=== PATIENT | male | born 1965 | race American Indian/Alaskan Native ===

== ENCOUNTER 2024-01-16 06:26 | Emergency (ER) | payer SELFPAY ==
[2024-01-16 06:26] VITALS: BMI 26.6
[2024-01-16 06:43] VITALS: BP 117/82; PULSE 70; RESP 18; TEMP 36.6; O2SAT 98
--- NOTE | 2024-01-16 06:58 | EKG_ITS ---
[facility] Test Date: 2024-01-16 Pat Name: DEMAR THAKKAR Department: Room: - Gender: Male Service Porter: : 1965 Requested By: Zaheer Mccabe Order Number: [id number] Reading MD: Zaheer Mccabe Measurements Intervals [place] Rate: 72 P: 46 NV: 132 QRS: 75 QRSD: 90 T: 59 QT: 393 QTc: 432 Interpretive Statements SINUS RHYTHM No previous ECG available for comparison /store/S0/[id number]/ecg/[id number].pdf
--- NOTE | 2024-01-16 07:13 | PD.EDUPEX ---
Upper Extremity Injury RME/HPI General Chief Complaint: Extremity Injury, Upper Stated Complaint: RIGHT SHOULDER PAIN Time Seen by Provider: 01/16/24 06:36 Arrival date/time: 01/16/24 06:26 Limitations: no limitations RME / HPI RME / HPI narrative: 58-year-old male with known torn right rotator cuff injury presents for evaluation of right shoulder pain. Patient describes it as sharp, constant, with radiation to his right scapula. Pt reports taking ibuprofen at 1500 yesterday with minimal improvement in pain. Patient has rotator cuff repair surgery scheduled for February. Patient denies fever, chills, substernal chest pain, shortness of breath, cough, nausea, vomiting. MD complaint: injury to: right Onset (ago): week(s) Other injuries: back Handedness: right Related Data Previous Rx's ?Medication ?Instructions ?Recorded cyclobenzaprine 10 mg tablet 10 mg PO TID PRN muscle spasm #30 01/16/24 tabs ibuprofen 600 mg tablet 600 mg PO TID PRN pain #14 tabs 01/16/24 Allergies Allergy/AdvReac Type Severity Reaction Status Date / Time No Known Allergies Allergy Verified 01/16/24 06:28 Review of Systems Constitutional Constitutional: Denies chills, Denies fever(s) and Denies headache(s) ENT Ears, Nose, Mouth, and Throat: Denies headache(s), Denies neck pain and Denies vertigo Cardiovascular Cardiovascular: Denies chest pain and Denies dyspnea Respiratory Respiratory: Denies cough, Denies dyspnea and Denies wheezing Gastrointestinal Gastrointestinal: Denies nausea and Denies vomiting Musculoskeletal Musculoskeletal: Reports arthralgias (R shoulder), Reports back pain (right scapula ), Denies muscle cramps, Denies muscle weakness, Denies neck pain, Denies numbness, Denies stiffness and Denies tingling Integumentary/Breasts Skin/Breast: Denies erythema and Denies skin pain Neurologic Neurologic: Denies headache(s), Denies numbness, Denies tingling and Denies vertigo Allergic/Immunologic Allergic/Immunologic: Denies wheezing Past Medical History Social History SMOKING STATUS: Never smoker ED Exam General Limitations: Present no limitations General appearance: Present alert and in no apparent distress Head Head exam: Present atraumatic and normocephalic Eye Eye exam: Present normal appearance and EOMI ENT ENT exam: Present mucous membranes moist and TM's normal bilaterally Neck Neck exam: Present normal inspection and full ROM; Absent tenderness Chest Chest inspection: Present normal inspection and symmetric chest wall rise Respiratory Respiratory exam: Present normal lung sounds bilaterally; Absent respiratory distress or wheezes Cardiovascular Cardiovascular exam: Present regular rate and +S1 Abdominal Exam Abdominal exam: Present soft; Absent distention Expanded Upper Extremity Exam Shoulder exam: Absent full ROM, tenderness, ecchymosis, deformity, crepitus, dislocation or tenderness over AC joint Arm exam: Present normal inspection; Absent tenderness Elbow exam: Present normal inspection Forearm/Wrist exam: Present normal inspection Hand exam: Present normal inspection Course Quality Measures none Orders Category Date Time Status EKG (ED ONLY) *Do not use* NOW Care 01/16/24 06:58 Completed EKG (ED Only) Stat Exams 01/16/24 06:58 Draft CYCLObenzaPRINE [Flexeril] Med 01/16/24 06:58 Discontinued 5 mg PO X1 ONE Ketorolac Inj [Toradol Inj] Med 01/16/24 06:58 Discontinued 30 mg IM X1 ONE Vital Signs Vital signs: Vital Signs Temperature 98 F 01/16/24 06:43 Pulse Rate 70 01/16/24 06:43 Respiratory Rate 18 01/16/24 06:43 Blood Pressure 117/82 01/16/24 06:43 Pulse Oximetry (%) 98 01/16/24 06:43 Oxygen Delivery Method Room Air 01/16/24 06:43 Extremity Injury MDM Narrative MDM Narrative:: 58-year-old male presents with right shoulder pain. Patient has a known rotator cuff tear and is pending surgery in February. Vital signs reassuring. Physical exam significant for muscle spasm in right trapezius area on exam. No x-ray was ordered today given patient denied trauma and no gross deformity on examination. Patient was given antispasmodic in the department which improved his symptoms, pointing towards spasm. Lack of numbness and tingling points away from acute nerve injury at this time. EKG showed nonspecific ST changes and patient denied substernal chest pain therefore low concern for ACS. Ultimately patient was discharged home with plan to follow-up with primary care in the next 2 to 3 days and continue with surgery as scheduled. Return precautions were provided. Patient stable time discharge. Patient data External records reviewed:: [facility] previous records Clinical information provided by:: patient Social determinants that could affect healthcare access:: none Patient has the following chronic illnesses:: Right rotator cuff injury. How is presenting disease/condition affected by chronic disease/condition?: exacerbated by Evaluation data The following diagnostics were reviewed and interpreted by me:: other (specify) Lab and/or radiology exams considered but not ordered:: Considered not ordered. Interpretation Summary: Considered not ordered. Medications / Prescriptions Medications or Prescriptions considered but not ordered:: Rx given. Medication administrations:: Medication Administration History Discontinued Medications Cyclobenzaprine HCl (Cyclobenzaprine 5 Mg Tablet) 5 mg PO X1 ONE Stop: 01/16/24 06:59 Last Admin: 01/16/24 07:46 Dose: 5 mg Documented By: DIANN Ketorolac Tromethamine (Ketorolac Inj 60 Mg/2 Ml Vial) 30 mg IM X1 ONE Stop: 01/16/24 06:59 Last Admin: 01/16/24 07:45 Dose: 30 mg Documented By: DIANN Rx given. Consultations Consultation(s) initiated? (list below): No Diagnosis Upper Extremity Injury Differential Diagnosis: dislocation of shoulder, fracture of humerus, fracture of clavicle and other (Ligamentous injury.) Most likely diagnosis given after review of the tests above:: Right shoulder discomfort. Admission Indicated Admission indicated?: not indicated Admission Request Was there a request for admission?: No Disposition Plan Disposition Plan: Discharge Discharge Attestation Discharge Attestation: The patient and all family members were given an opportunity to ask questions and understood the discharge instructions. Discharge instructions specifically effects, indications for sooner follow up or return to the emergency department, and the expected course of current diagnosis. Patient condition: Stable Discharge Plan Plan Patient Disposition: HOME (Self Care) Disposition Comment: stable Prescriptions/Referrals Prescriptions/Med Rec: New cyclobenzaprine 10 mg tablet 10 mg PO TID PRN (Reason: muscle spasm) Qty: 30 0RF ibuprofen 600 mg tablet 600 mg PO TID PRN (Reason: pain) Qty: 14 0RF Referrals: Temporary Provider,ED [Physician] - In 1 week Problem List Clinical Impression: Chronic right shoulder pain, Muscle spasm Patient/Caregiver Discharge Instructions Other Activity Instructions:: Take muscle relaxer every 6 hours as needed for muscle spasm. Continue take ibuprofen as directed for pain. Follow-up with primary care within the week for reevaluation. Follow-up with surgery as planned. Education Materials: ED Muscle Spasm Print Language: Chinese Stand Alone Forms: [place] Award Info., Patient Portal Info Letter PA/CLOUD SUBJECT MATTER EXPERT Supervising Physician PA/CLOUD SUBJECT MATTER EXPERT Supervising Physician: Dr. Mckeon
[2024-01-16] MEDS: KETOROLAC INJ 60 MG/2 ML VIAL 30 MG IM (07:45)
[2024-01-16] MEDS: CYCLObenzaPRINE 5 MG TABLET PO (07:46)
== END 2024-01-16 08:20 | disposition home or self-care (01) ==
PROVIDERS: Emergency Provider Emergency Medicine
DX: S46.011A Strain of muscle(s) and tendon(s) of the rotator cuff of right shoulder, initial encounter (principal); M62.838 Other muscle spasm; X58.XXXA Exposure to other specified factors, initial encounter
CPT/HCPCS: 93005; 96372; 99283; J1885; A9270